=== PATIENT | female | born 1960 | race Caucasian/White ===

== ENCOUNTER 2016-10-23 06:49 | Inpatient (IN) | payer OTHER ==
[~2016-10-23] VITALS: Ht 165.1 cm; Wt 79.3 kg
[~2016-10-23 06:49] MED LIST: ALB2.5IS NEB; ALPR0.5T7 PO; BLAC540C3 PO; LEV100T PO; LIDO5DIS21 TOP; OXYC-650 PO; TOPI200T43 PO
[2016-10-23 07:23] LABS: Basophils # (auto) 0 uL; Basophils % (auto) 0.6 % (0.0-2.0); Eosinophils # (auto) 0.1 uL; Eosinophils % (auto) 1.4 % (0.0-7.0); Hemoglobin 12.9 g/dL (12.2-16.2); Lymphocytes # (auto) 2.3 uL; Lymphocytes % (auto) 46.6 % (10.0-50.0); Mean Corpuscular Hemoglobin 30.2 pg (28.0-32.0); Mean Corpuscular Volume 91.6 fL (80.0-100.0); Mean Platelet Volume 8.1 fL (7.4-10.4); Monocytes # (auto) 0.3 uL; Monocytes % (auto) 6.4 % (0.0-12.0); Neutrophils # (auto) 2.2 uL; Platelet Count (auto) 266 10^3/uL (140-450); Red Cell Distribution Width 14.2 % (11.6-16.0); White Blood Cell 4.9 10^3/uL (4.4-10.8)
[2016-10-23 07:42] LABS: Urine Bilirubin Negative (Negative); Urine Blood Negative /uL (Negative); Urine Color Yellow (Yellow); Urine Glucose Normal (Normal); Urine Ketone Negative (Negative); Urine RBC <1 /hpf (0 - 4); Urine Urobilinogen Normal (Negative); Urine pH 7.5 (5.0-8.0)
[2016-10-23 07:43] LABS: Urine Nitrite POSITIVE (Negative)
[2016-10-23 07:44] LABS: Albumin 3.6 g/dL (3.4-5.0); BUN/Creatinine Ratio 10.3; Bilirubin, Total 0.2 mg/dL (0.2-1.0); Calcium 8.7 mg/dL (8.5-10.1); Potassium 3.8 mmol/L (3.5-5.1); Total Protein 6.6 g/dL (6.4-8.2)
[2016-10-23] MEDS ORDERED: SULFAMETHOX W/TRIMETH(800/160MG) DS TAB PO ONE (12:45)
[2016-10-23] MEDS: SODIUM CHLORIDE 0.9% 1,000 ML IV SCH (12:57)
[2016-10-23] MEDS ORDERED: PROMETHAZINE HCL 25 MG/ML 1ML IV PRN (13:00)
[2016-10-23] MEDS ORDERED: LORazepam 0.5 MG TAB PO PRN (13:00)
[2016-10-23] MEDS ORDERED: HYDROcodone-ACET 5/325MG TAB PO PRN (13:00)
[2016-10-23] MEDS ORDERED: TEMAZEPAM 15 MG CAP PO PRN (13:00)
[2016-10-23] MEDS ORDERED: NITROGLYCERIN 0.4 MG SL TAB SL PRN (13:00)
[2016-10-23] MEDS ORDERED: ACETAMINOPHEN 500 MG TAB PO PRN (13:00)
[2016-10-23] MEDS ORDERED: LACTULOSE 20Gm/30ML SOLN PO PRN (13:00)
[2016-10-23] MEDS ORDERED: MORPHINE SULF INJ 2 MG/ML SYRINGE 1ML IV PRN ×2 (13:00)
[2016-10-23] MEDS: ASPirin 81 mg TAB PO SCH (13:15)
[2016-10-23] MEDS: NITROGLYCERIN 0.2MG/HR TOPICAL PATCH TD SCH (13:15)
[2016-10-23] MEDS: ENOXAPARIN SOD 40 MG/0.4 ML SYRINGE SC SCH (13:15)
[2016-10-23] MEDS ORDERED: FAMOTIDINE 20 MG TAB PO ONE (14:00)
[2016-10-23] MEDS ORDERED: OXY5T PO (15:09)
[2016-10-23] MEDS ORDERED: oxyCODONE ER 10 MG TAB PO PRN (16:00)
[2016-10-23] MEDS ORDERED: PATIENTS OWN MEDICATION PO PRN ×2 (16:00)
[2016-10-23 17:00] VITALS: BP 89/55
[2016-10-23] MEDS ORDERED: POTASSIUM CHL 10% (20 MEQ/15ML) ORAL SOLN PO SCH (18:00)
[2016-10-23] MEDS ORDERED: FUROSEMIDE 100 MG/10ML VIAL IV ONE (18:15)
[2016-10-23] MEDS: oxyCODONE ER 10 MG TAB PO SCH ×2 (18:26→23:57)
[2016-10-23] MEDS: ALPRAZolam 0.5 MG TAB PO PRN (18:27)
[2016-10-23 19:30] VITALS: BP 115/69
[2016-10-23] MEDS ORDERED: PANTOPRAZOLE 40 MG TAB PO ONE (20:30)
[2016-10-23] MEDS: ATORVASTATIN 20 MG TAB PO SCH (21:48)
[2016-10-23 22:00] VITALS: BP 115/69
[2016-10-24] MEDS: SODIUM CHLORIDE 0.9% 1,000 ML IV SCH ×2 (04:46→12:23)
[2016-10-24 05:00] VITALS: BP 123/73
[2016-10-24] MEDS ORDERED: FUROSEMIDE 100 MG/10ML VIAL IV ONE (06:00)
[2016-10-24] MEDS: POTASSIUM CHL 10% (20 MEQ/15ML) ORAL SOLN PO SCH ×2 (06:08→11:54)
[2016-10-24] MEDS: oxyCODONE ER 10 MG TAB PO SCH ×4 (06:09→23:46)
[2016-10-24] MEDS: LEVOTHYROXINE SODIUM 100 MCG TAB PO SCH (06:10)
[2016-10-24] MEDS: ALPRAZolam 0.5 MG TAB PO PRN ×4 (06:11→23:46)
[2016-10-24 06:46] LABS: Cholesterol 130 mg/dL (<200); HDL Cholesterol 59 mg/dL (40-59); LDL Cholesterol 65 mg/dL (<100); Triglycerides 117 mg/dL (<150)
[2016-10-24 07:56] VITALS: BP 122/77
[2016-10-24 08:16] VITALS: BP 121/74
[2016-10-24] MEDS: ENOXAPARIN SOD 40 MG/0.4 ML SYRINGE SC SCH (09:03)
[2016-10-24] MEDS: PANTOPRAZOLE 40 MG TAB PO SCH (09:04)
[2016-10-24] MEDS: ASPirin 81 mg TAB PO SCH (09:04)
[2016-10-24] MEDS: NITROGLYCERIN 0.2MG/HR TOPICAL PATCH TD SCH (09:05)
[2016-10-24 12:57] VITALS: BP 105/57
[2016-10-24] MEDS ORDERED: cefTRIAXone 1GM/50ML D5W 50 ML IV ONE (15:00)
[2016-10-24 17:17] VITALS: BP 106/58
[2016-10-24] MEDS: TOPIRAMATE 100 MG TAB PO SCH (21:46)
[2016-10-24] MEDS: ATORVASTATIN 20 MG TAB PO SCH (21:46)
[2016-10-24 22:00] VITALS: BP 83/52
[2016-10-25 05:00] VITALS: BP 83/48
[2016-10-25] MEDS: oxyCODONE ER 10 MG TAB PO SCH ×4 (06:05→23:39)
[2016-10-25] MEDS: ALPRAZolam 0.5 MG TAB PO PRN ×4 (06:05→23:39)
[2016-10-25] MEDS: LEVOTHYROXINE SODIUM 100 MCG TAB PO SCH (06:41)
[2016-10-25 08:00] VITALS: BP 97/53
[2016-10-25 09:01] VITALS: BP 97/53
[2016-10-25] MEDS: PANTOPRAZOLE 40 MG TAB PO SCH (09:10)
[2016-10-25] MEDS: ASPirin 81 mg TAB PO SCH (09:10)
[2016-10-25] MEDS: TOPIRAMATE 100 MG TAB PO SCH ×2 (09:11→21:22)
[2016-10-25] MEDS: cefTRIAXone 1GM/50ML D5W 50 ML IV SCH (09:11)
[2016-10-25 12:44] VITALS: BP 101/61
[2016-10-25 16:10] VITALS: BP 102/54
[2016-10-25] MEDS: ATORVASTATIN 20 MG TAB PO SCH (21:21)
[2016-10-25 22:00] VITALS: BP 113/64
[2016-10-26] VITALS (9 sets, daily range): BP systolic 88–113; BP diastolic 41–58
[2016-10-26] MEDS: LEVOTHYROXINE SODIUM 100 MCG TAB PO SCH (06:20)
[2016-10-26] MEDS: oxyCODONE ER 10 MG TAB PO SCH ×3 (06:20→18:06)
[2016-10-26] MEDS: ALPRAZolam 0.5 MG TAB PO PRN ×3 (06:20→18:09)
[2016-10-26] MEDS ORDERED: IOHEXOL 350 MG/ML 100ML IJ ONE (09:24)
[2016-10-26] MEDS ORDERED: METOPROLOL TARTRATE 1MG/1ML-5ML VIAL IV ONE (09:29)
[2016-10-26] MEDS: PANTOPRAZOLE 40 MG TAB PO SCH (10:37)
[2016-10-26] MEDS: ASPirin 81 mg TAB PO SCH (10:37)
[2016-10-26] MEDS: cefTRIAXone 1GM/50ML D5W 50 ML IV SCH (10:38)
[2016-10-26] MEDS: TOPIRAMATE 100 MG TAB PO SCH ×2 (10:38→21:57)
[2016-10-26] MEDS: ATORVASTATIN 20 MG TAB PO SCH (21:53)
[2016-10-27] VITALS (9 sets, daily range): BP systolic 85–121; BP diastolic 52–74
[2016-10-27] MEDS: ALPRAZolam 0.5 MG TAB PO PRN ×3 (00:25→12:30)
[2016-10-27] MEDS: oxyCODONE ER 10 MG TAB PO SCH ×3 (00:25→12:00)
[2016-10-27] MEDS: LEVOTHYROXINE SODIUM 100 MCG TAB PO SCH (06:41)
[2016-10-27] MEDS: cefTRIAXone 1GM/50ML D5W 50 ML IV SCH (09:23)
[2016-10-27] MEDS: ASPirin 81 mg TAB PO SCH (10:17)
[2016-10-27] MEDS: PANTOPRAZOLE 40 MG TAB PO SCH (10:18)
[2016-10-27] MEDS: TOPIRAMATE 100 MG TAB PO SCH (10:18)
== END 2016-10-27 14:15 | disposition home or self-care (01) | DRG 689 ==
LOC: ER 06:53 → TELE 06:54 → TELE-WESTW 14:29
PROVIDERS: ADMIT Internal Medicine; ATTEND Family Medicine
DX: N39.0 Urinary tract infection, site not specified (principal); I50.31 Acute diastolic (congestive) heart failure; K21.9 Gastro-esophageal reflux disease without esophagitis; E87.8 Other disorders of electrolyte and fluid balance, not elsewhere classified; F17.210 Nicotine dependence, cigarettes, uncomplicated; M54.5 Low back pain; F41.9 Anxiety disorder, unspecified; B96.20 Unspecified Escherichia coli [E. coli] as the cause of diseases classified elsewhere; M19.90 Unspecified osteoarthritis, unspecified site; G89.4 Chronic pain syndrome; E03.9 Hypothyroidism, unspecified; J44.9 Chronic obstructive pulmonary disease, unspecified; M79.7 Fibromyalgia; E05.00 Thyrotoxicosis with diffuse goiter without thyrotoxic crisis or storm; G43.909 Migraine, unspecified, not intractable, without status migrainosus; Z90.49 Acquired absence of other specified parts of digestive tract; Z90.710 Acquired absence of both cervix and uterus; Z82.3 Family history of stroke; Z80.0 Family history of malignant neoplasm of digestive organs; Z79.899 Other long term (current) drug therapy; Z90.89 Acquired absence of other organs
CPT/HCPCS: 36415; 71010; 75574; 80053; 80061; 81001; 82550; 84484; 85025; 85379; 85652; 86141; 87086; 87088; 87186; 93005; 93970; G0434; J0696

== ENCOUNTER 2020-02-21 15:33 | Inpatient (IN) | payer OTHER ==
[~2020-02-21] VITALS: Ht 170.2 cm; Wt 78.7 kg
[~2020-02-21 15:33] MED LIST changes: +OXY5T PO; -OXYC-650 PO
[2020-02-21 16:07] LABS: Basophils # (auto) 0.1 10 ^3/uL (0-0.2); Basophils % (auto) 1.5 % (0.0-2.0); Eosinophils # (auto) 0 10 ^3/uL (0-0.8); Eosinophils % (auto) 0.7 % (0.0-7.0); Hematocrit 39.7 % (36.0-46.0); Hemoglobin 13.1 g/dL (12.2-16.2); Lymphocytes # (auto) 2.3 10 ^3/uL (0.4-5.4); Lymphocytes % (auto) 46.2 % (10.0-50.0); Mean Corpuscular Hemoglobin 29.2 pg (28.0-32.0); Mean Corpuscular Volume 88.7 fL (80.0-100.0); Monocytes # (auto) 0.3 10 ^3/uL (0-1.3); Monocytes % (auto) 6.4 % (0.0-12.0); Neutrophils # (auto) 2.3 10 ^3/uL (1.6-8.6); Neutrophils % (auto) 45.2 % (37.0-80.0); Nucleated Red Blood Cells % 0.1 %; Platelet Count (auto) 236 10^3/uL (140-450); Red Blood Cells 4.47 10^6/uL (4.0-5.20); Red Cell Distribution Width 14.2 % (11.8-14.3)
[2020-02-21 16:10] LABS: Urine Bacteria NONE SEEN /hpf (None Seen); Urine Blood Negative /uL (Negative); Urine Specific Gravity 1.014 (1.001-1.035); Urine WBC 1 /hpf (0 - 5)
[2020-02-21 16:21] LABS: Alanine Aminotransferase 10 U/L (13-56); Albumin 3.9 g/dL (3.4-5.0); Anion Gap 7 (5-15); Aspartate Aminotransferase 16 U/L (15-37); Blood Urea Nitrogen 9 mg/dL (7-18); Calcium 8.5 mg/dL (8.5-10.1); Carbon Dioxide 22 mmol/L (21-32); Chloride 107 mmol/L (98-107); GFR African American 83 mL/min; GFR Non-African American 68 mL/min; Glucose 92 mg/dL (74-106); Potassium 3.1 mmol/L (3.5-5.1); Sodium 136 mmol/L (136-145)
[2020-02-21 16:25] LABS: Alkaline Phosphatase 57 U/L (45-117); Bilirubin, Total 0.5 mg/dL (0.2-1.0); Total Protein 7.2 g/dL (6.4-8.2)
[2020-02-21] MEDS ORDERED: MORPHINE SULFATE 4 MG/ML SYR/VIAL IV ONE (17:30)
[2020-02-21] MEDS ORDERED: ONDANSETRON HCL 4 MG/2 ML VIAL IV ONE ×2 (17:30→20:15)
[2020-02-21] MEDS ORDERED: SODIUM CHLORIDE 0.9% 1,000 ML IV ONE (17:30)
[2020-02-21] MEDS ORDERED: POTASSIUM CHL 20 Meq TABLET PO ONE (18:00)
[2020-02-21 19:02] LABS: Amylase 42 U/L (25-115); Lipase 62 U/L (73-393)
[2020-02-21] MEDS ORDERED: MORPHINE SULF INJ 2 MG/ML SYRINGE 1ML IV ONE (20:15)
[2020-02-21] MEDS ORDERED: cefTRIAXone 1GM/50ML D5W 50 ML IV ONE (21:45)
[2020-02-21] MEDS ORDERED: ONDANSETRON HCL 4 MG/2 ML VIAL IV PRN (21:45)
[2020-02-21] MEDS: SODIUM CHLORIDE 0.9% 1,000 ML IV SCH ×2 (22:05→23:05)
[2020-02-22] VITALS (7 sets, daily range): BP systolic 93–120; BP diastolic 54–63
[2020-02-22] MEDS: MORPHINE SULFATE 4 MG/ML SYR/VIAL IV PRN ×3 (00:12→10:32)
[2020-02-22] MEDS ORDERED: BACL10TA PO (01:23)
[2020-02-22] MEDS ORDERED: HYDR12.56 PO (01:23)
[2020-02-22 05:49] LABS: Basophils # (auto) 0.1 10 ^3/uL (0-0.2); Eosinophils # (auto) 0 10 ^3/uL (0-0.8); Eosinophils % (auto) 1.2 % (0.0-7.0); Hematocrit 36.9 % (36.0-46.0); Hemoglobin 12.2 g/dL (12.2-16.2); Lymphocytes % (auto) 54.7 % (10.0-50.0); Mean Corpuscular Hemoglobin 29.8 pg (28.0-32.0); Mean Corpuscular Hgb Conc. 33.1 g/dL (32.0-36.0); Mean Corpuscular Volume 89.9 fL (80.0-100.0); Monocytes # (auto) 0.3 10 ^3/uL (0-1.3); Monocytes % (auto) 8.7 % (0.0-12.0); Neutrophils # (auto) 1.2 10 ^3/uL (1.6-8.6); Neutrophils % (auto) 33.4 % (37.0-80.0); Nucleated Red Blood Cells % 0.2 %; Platelet Count (auto) 188 10^3/uL (140-450); Red Blood Cells 4.11 10^6/uL (4.0-5.20); Red Cell Distribution Width 14.5 % (11.8-14.3); White Blood Cell 3.6 10^3/uL (4.4-10.8)
[2020-02-22 05:59] LABS: Potassium 3.7 mmol/L (3.5-5.1)
[2020-02-22 06:03] LABS: BUN/Creatinine Ratio 11.9; Calcium 8.3 mg/dL (8.5-10.1)
[2020-02-22 10:26] LABS: INR 1.11 (0.9-1.15); Partial Thromboplastin Time 29.5 sec (23.64-32.05)
[2020-02-22] MEDS: PANTOPRAZOLE 40 MG/10 ML VIAL INJ IV SCH (10:31)
[2020-02-22] MEDS: cefTRIAXone 1GM/50ML D5W 50 ML IV SCH (10:32)
[2020-02-22] MEDS ORDERED: ceFAZolin 1GM/50ML 50 ML IV ONE (13:35)
[2020-02-22] MEDS ORDERED: ACETAMINOPHEN 325 MG TAB PO PRN (14:30)
[2020-02-22] MEDS: MORPHINE SULF INJ 2 MG/ML SYRINGE 1ML IV PRN (18:03)
[2020-02-22] MEDS: SODIUM CHLORIDE 0.9% 1,000 ML IV SCH ×2 (18:04→19:15)
[2020-02-22] MEDS ORDERED: LEVO112T4 PO (18:14)
[2020-02-22] MEDS ORDERED: TRAM50TA2 PO (18:17)
[2020-02-22] MEDS ORDERED: CYCL1TAB18 PO (18:17)
[2020-02-22] MEDS ORDERED: ALBUAER3 IN (18:18)
[2020-02-22] MEDS ORDERED: ASPI-498 PO (18:18)
[2020-02-22] MEDS ORDERED: CHOL3000 PO (18:19)
[2020-02-22] MEDS ORDERED: POTA-167 PO (18:20)
[2020-02-22] MEDS ORDERED: HCTZ25T PO (18:25)
[2020-02-23 04:55] VITALS: BP 97/55
[2020-02-23 05:15] LABS: Basophils # (auto) 0.1 10 ^3/uL (0-0.2); Basophils % (auto) 1.3 % (0.0-2.0); Eosinophils # (auto) 0.1 10 ^3/uL (0-0.8); Eosinophils % (auto) 1.2 % (0.0-7.0); Hematocrit 38.6 % (36.0-46.0); Hemoglobin 12.7 g/dL (12.2-16.2); Lymphocytes # (auto) 1.7 10 ^3/uL (0.4-5.4); Mean Corpuscular Hemoglobin 29.4 pg (28.0-32.0); Mean Corpuscular Hgb Conc. 32.8 g/dL (32.0-36.0); Mean Corpuscular Volume 89.6 fL (80.0-100.0); Monocytes # (auto) 0.3 10 ^3/uL (0-1.3); Monocytes % (auto) 8.1 % (0.0-12.0); Neutrophils # (auto) 2.1 10 ^3/uL (1.6-8.6); Neutrophils % (auto) 50.4 % (37.0-80.0); Platelet Count (auto) 198 10^3/uL (140-450); Red Cell Distribution Width 14.2 % (11.8-14.3); White Blood Cell 4.2 10^3/uL (4.4-10.8)
[2020-02-23 05:29] LABS: INR 1.07 (0.9-1.15)
[2020-02-23 05:36] LABS: Albumin 3.2 g/dL (3.4-5.0); Calcium 8.3 mg/dL (8.5-10.1); Potassium 3.7 mmol/L (3.5-5.1)
[2020-02-23 05:40] LABS: BUN/Creatinine Ratio 12.5; Bilirubin, Total 0.5 mg/dL (0.2-1.0); Total Protein 6.3 g/dL (6.4-8.2)
[2020-02-23] MEDS: MORPHINE SULF INJ 2 MG/ML SYRINGE 1ML IV PRN ×4 (06:15→23:12)
[2020-02-23] MEDS: SODIUM CHLORIDE 0.9% 1,000 ML IV SCH ×2 (06:22→18:06)
[2020-02-23] MEDS ORDERED: LIDOCAINE 1% HCL (LOCAL ANESTH.) INJ 20ML MDV ONE (06:50)
[2020-02-23] MEDS ORDERED: SUCCINYLCHOLINE CHLORIDE 20 MG/ML 10ML VIAL IV ONE ×2 (06:51→09:24)
[2020-02-23 08:00] VITALS: BP 105/56
[2020-02-23 09:00] VITALS: BP 105/56
[2020-02-23] MEDS: cefTRIAXone 1GM/50ML D5W 50 ML IV SCH (09:22)
[2020-02-23] MEDS: PANTOPRAZOLE 40 MG/10 ML VIAL INJ IV SCH (09:22)
[2020-02-23] MEDS ORDERED: LIDOCAINE 1% (LOCAL ANESTH.) PF 5ml SDV ONE (09:23)
[2020-02-23] MEDS ORDERED: BUPIVACAINE W/ EPINEPH 0.25% INJ 50ML MDV ONE (09:28)
[2020-02-23] MEDS ORDERED: LIDOCAINE W/ EPINEPHRINE 1 % INJ 30ML ONE (09:28)
[2020-02-23] MEDS ORDERED: MIDAZOLAM HCL 1MG/1ML-2 ML VIAL ONE (09:38)
[2020-02-23] MEDS ORDERED: METOCLOPRAMIDE HCL 5MG/ml INJ 2ml VIAL ONE (09:38)
[2020-02-23] MEDS ORDERED: ETOMIDATE (2MG/ML) 20ML VIAL IV ONE (09:38)
[2020-02-23] MEDS ORDERED: ROCURONIUM 10MG/ML 10ML VIAL IV ONE (09:39)
[2020-02-23] MEDS ORDERED: ceFAZolin 1GM/50ML 50 ML IV ONE (09:39)
[2020-02-23] MEDS ORDERED: fentaNYL CITRATE 100 MCG/2 ML VL ONE (09:59)
[2020-02-23] MEDS ORDERED: ONDANSETRON HCL 4 MG/2 ML VIAL IV PRN (10:00)
[2020-02-23] MEDS ORDERED: NALOXONE HCL 0.4 MG/ML VIAL IV PRN (10:00)
[2020-02-23] MEDS ORDERED: HYDROmorphone HCL 2 MG/ML VL IV PRN (10:00)
[2020-02-23] MEDS ORDERED: NEOSTIGMINE 1 MG/ML INJ (10mg/10ML VIAL) ONE (10:47)
[2020-02-23] MEDS ORDERED: GLYCOPYRROLATE 0.2 MG/ML 1ML VIAL ONE (10:47)
[2020-02-23] MEDS: HYDROmorphone HCL 2 MG/ML VL IV PRN ×3 (11:02→11:36)
[2020-02-23] MEDS: HYDROcodone-ACET 5/325MG TAB PO PRN ×2 (16:06→20:54)
[2020-02-23 17:00] VITALS: BP 101/52
[2020-02-23 22:00] VITALS: BP 107/66
[2020-02-24] VITALS (8 sets, daily range): BP systolic 106–121; BP diastolic 60–71
[2020-02-24] MEDS: SODIUM CHLORIDE 0.9% 1,000 ML IV SCH ×3 (01:15→21:15)
[2020-02-24] MEDS: MORPHINE SULF INJ 2 MG/ML SYRINGE 1ML IV PRN ×4 (03:08→19:30)
[2020-02-24] MEDS: HYDROcodone-ACET 5/325MG TAB PO PRN ×3 (05:07→22:31)
[2020-02-24 05:08] LABS: Basophils # (auto) 0 10 ^3/uL (0-0.2); Basophils % (auto) 0.6 % (0.0-2.0); Eosinophils # (auto) 0 10 ^3/uL (0-0.8); Eosinophils % (auto) 0.5 % (0.0-7.0); Hematocrit 37.3 % (36.0-46.0); Hemoglobin 12.4 g/dL (12.2-16.2); Lymphocytes # (auto) 1.3 10 ^3/uL (0.4-5.4); Lymphocytes % (auto) 27.4 % (10.0-50.0); Mean Corpuscular Hemoglobin 29.7 pg (28.0-32.0); Mean Corpuscular Hgb Conc. 33.3 g/dL (32.0-36.0); Mean Corpuscular Volume 89.1 fL (80.0-100.0); Monocytes # (auto) 0.4 10 ^3/uL (0-1.3); Monocytes % (auto) 8.5 % (0.0-12.0); Platelet Count (auto) 183 10^3/uL (140-450); Red Blood Cells 4.19 10^6/uL (4.0-5.20); Red Cell Distribution Width 14.5 % (11.8-14.3); White Blood Cell 4.7 10^3/uL (4.4-10.8)
[2020-02-24 05:27] LABS: Potassium 3.5 mmol/L (3.5-5.1)
[2020-02-24 05:31] LABS: Albumin 3.1 g/dL (3.4-5.0); BUN/Creatinine Ratio 11.8; Calcium 8.3 mg/dL (8.5-10.1); Magnesium 2.1 mg/dL (1.6-2.6)
[2020-02-24 05:34] LABS: Bilirubin, Total 0.6 mg/dL (0.2-1.0); Total Protein 6.4 g/dL (6.4-8.2)
[2020-02-24] MEDS: cefTRIAXone 1GM/50ML D5W 50 ML IV SCH (09:08)
[2020-02-24] MEDS: PANTOPRAZOLE 40 MG/10 ML VIAL INJ IV SCH (09:08)
[2020-02-25] MEDS: MORPHINE SULF INJ 2 MG/ML SYRINGE 1ML IV PRN ×3 (01:41→14:19)
[2020-02-25 05:00] VITALS: BP 103/55
[2020-02-25] MEDS: SODIUM CHLORIDE 0.9% 1,000 ML IV SCH (07:15)
[2020-02-25 08:00] VITALS: BP 120/72
[2020-02-25] MEDS: PANTOPRAZOLE 40 MG/10 ML VIAL INJ IV SCH (08:59)
[2020-02-25] MEDS: cefTRIAXone 1GM/50ML D5W 50 ML IV SCH (08:59)
[2020-02-25 09:00] VITALS: BP 120/72
[2020-02-25] MEDS: HYDROcodone-ACET 5/325MG TAB PO PRN (09:00)
[2020-02-25 14:39] VITALS: BP 111/71
[2020-02-25] MEDS ORDERED: ONDA-144 PO (14:48)
[2020-02-25] MEDS ORDERED: HCTZ25T PO (14:48)
[2020-02-25] MEDS ORDERED: POTA10TA51 PO (14:48)
[2020-02-25] MEDS ORDERED: LEVO112T35 PO (14:48)
[2020-02-25] MEDS ORDERED: ASPI81CH59 PO (14:48)
[2020-02-25] MEDS ORDERED: HYDR-4833 PO (14:50)
[2020-02-25 15:05] VITALS: BP 117/71
== END 2020-02-25 16:40 | disposition home or self-care (01) | DRG 419 ==
LOC: ER 15:33 → WEST WING 15:34
PROVIDERS: ADMIT Nurse Practitioner; ATTEND Internal Medicine
PROC: 0FT44ZZ Resection of Gallbladder, Percutaneous Endoscopic Approach (ICD-10-PCS; principal; 2020-02-23 09:44)
DX: K80.00 Calculus of gallbladder with acute cholecystitis without obstruction (principal); F17.210 Nicotine dependence, cigarettes, uncomplicated; F41.9 Anxiety disorder, unspecified; K82.8 Other specified diseases of gallbladder; K66.0 Peritoneal adhesions (postprocedural) (postinfection); K21.9 Gastro-esophageal reflux disease without esophagitis; E03.9 Hypothyroidism, unspecified; I10 Essential (primary) hypertension; J44.9 Chronic obstructive pulmonary disease, unspecified; E87.6 Hypokalemia; Z80.0 Family history of malignant neoplasm of digestive organs; Z90.710 Acquired absence of both cervix and uterus; Z90.49 Acquired absence of other specified parts of digestive tract
CPT/HCPCS: 36415; 71045; 76705; 78226; 80048; 80053; 81001; 82150; 83690; 83735; 84443; 84484; 85025; 85610; 85730; 86850; 86900; 86901; 93005; 96361; 96365; 96375; 96376; C9113; G0378; J0330; J0690; J0696; J2001; J2250; J2405